=== PATIENT | male | born 1955 | race Caucasian/White ===

== ENCOUNTER → 2018-07-09 | Outpatient (CLI) | payer SELFPAY ==
--- NOTE | 2018-07-09 09:46 | PCVCIMAG ---
APPROVED REPORT Study performed: 07/09/2018 07:40:57 EXAM: Comprehensive 2D, Doppler, and color-flow Echocardiogram Patient Location: Echo lab Status: routine BSA: 1.89 HR: 67 bpmBP: 114/66 mmHg Rhythm: NSR Other Information Study Quality: Adequate Risk Factors: Cardiac Risk Factors: HTN Indications Dyspnea Chest Pain 2D Dimensions IVSd: 9.87 (7-11mm) LVDd: 40.63 mm PWd: 10.69 (7-11mm)Ascending Ao: 27.39 (22-36mm) LVDs: 25.59 (25-40mm) Left Atrium: 35.86 (27-40mm) Aortic Root: 30.07 mm LV Single Plane 4CH: 46.28 % LV Single Plane 2CH: 56.27 % Biplane EF: 51.0 % Volumes Left Atrial Volume (Systole) Single Plane 4CH: 52.40 mLSingle Plane 2CH: 38.62 mL LA ESV Index: 24.00 mL/m2 Aortic Valve AoV Peak Devin.: 1.34 m/s AO Peak Gr.: 7.18 mmHgLVOT Max P.22 mmHg LVOT Max V: 0.84 m/s Mitral Valve E/A Ratio: 1.4 MV Decel. Time: 204.02 ms MV E Max Devin.: 0.53 m/s MV A Devin.: 0.38 m/s IVRT: 79.58 ms Pulmonary Valve PV Peak Devin.: 1.19 m/sPV Peak Gr.: 5.62 mmHg Pulmonary Vein P Vein S: 0.30 m/sP Vein A: 0.33 m/s P Vein D: 0.40 m/sP Vein A Dur.: 128.0 msec P Vein S/D Ratio: 0.75 Tricuspid Valve TR Peak Devin.: 2.39 m/s TR Peak Gr.: 22.94 mmHg TV Vmax: 0.52 m/s Left Ventricle The left ventricle is normal size. There is normal LV segmental wall motion. There is normal left ventricular wall thickness. The left ventricular systolic function is normal. The left ventricular ejection fraction is within the lower limits of normal range. LVEF is 50%. Grade II - pseudonormal filling dynamics. Right Ventricle The right ventricle is normal size. The right ventricular systolic function is normal. Atria The left atrium size is normal. The right atrium size is normal. Aortic Valve The aortic valve is normal in structure. No aortic regurgitation is present. There is no aortic valvular stenosis. Mitral Valve The mitral valve is normal in structure. Trace mitral regurgitation. No evidence of mitral valve stenosis. Tricuspid Valve The tricuspid valve is normal in structure. Trace tricuspid regurgitation with PAP of 30 mmHg. Pulmonic Valve The pulmonary valve is normal in structure. There is no pulmonic valvular regurgitation. Great Vessels The aortic root is normal in size. IVC is normal in size and collapses >50% with inspiration. Pericardium There is no pericardial effusion. There is no pleural effusion. <Conclusion> The left ventricle is normal size. LVEF is 50%. The aortic valve is normal in structure. The mitral valve is normal in structure. Trace mitral regurgitation. The tricuspid valve is normal in structure. Trace tricuspid regurgitation with PAP of 30 mmHg. The pulmonary valve is normal in structure. There is no pericardial effusion.
--- NOTE | 2018-07-15 16:51 | PCVCIMAG ---
APPROVED REPORT Imaging Protocol: Rest Tc-99m/Stress Tc-99m 1 day Study performed: 07/09/2018 09:33:18 Indication: Chest pain, Dyspnea, Orthopnea Patient Location: Out-Patient Stress Nurse: Lor Moran RN, Nadia Clark RN MT Tech:Laura LEONIE BarnardMT Ht: 5 ft 6 in Wt: 175 lbs BSA: 1.89 m2 HR: 81 bpm BP: 117/71 mmHg BMI: 28.24 Rhythm: Sinus Rhythm, T wave abnormality Medical History Medical History: Hyperlipidemia, HTN Allergies: Morphine, Sulfa, Nuts Cardiac Risk Factors: Age, FHX of CAD Pretest Chest Pain Characteristics: No chest pain Exercise History: Sedentary Resting Data Rest SPECT myocardial perfusion imaging was performed in supine position 45 minutes following the intravenous injection of 10.8 mCi of Tc-99m Sestamibi. Time of rest injection: 0845 Date: 07/09/2018 Administration Route: IV Administration Site: Right Arm Pharmacologic Stress Pharmacologic stress test was performed by injecting Regadenoson 0.4 mg IV push over 10-15 seconds immediately followed by the intravenous injection of 34.7 mCi of Tc-99m Sestamibi. Time of stress injection: 1000 Date: 07/09/2018 Administration Route: IV Administration Site: Right Arm Gated Stress SPECT was performed 45 minutes after stress injection. The images were gated to evaluate regional wall motion and calculate left ventricular ejection fraction. Stress Test Details Stress Test: Pharmacologic stress was paired with low level exercise. Reason for pharmacologic stress test: physical limitation. HRMax Heart Rate (APMHR): 156 bpm Resting HR: 81 bpmTarget HR (85% APMHR): 132 bpm Max HR Achieved: 130 bpm % of APMHR: 83 Recovery HR: 81 bpm BP Resting BP: 117/71 mmHg Max BP: 120/70 mmHg Recovery BP: 125/65 mmHg ECG Resting ECG: Sinus Rhythm, T wave abnormality Stress ECG: Sinus Tachycardia, T wave abnormality Recovery ECG: Sinus Rhythm, T wave abnormality Clinical Reason for Termination: Completed protocol Stress Symptoms: Chest pain, Dyspnea, Leg Fatigue, Lightheaded Exercise duration: 4 min 00 sec Exercise capacity: 1.6 METs Symptoms resolved with caffeine. Stress ECG Conclusion 1. Adequate response to intravenous Lexiscan 2. Inadequate heart rate for ECG diagnosis Perfusion There is a large area of moderately reduced uptake in the entire segment of the inferior wall which is seen on the stress images as well as the resting images. This area thickens and moves normally and is most consistent with attenuation artifact. Wall Motion Normal left ventricular wall motion. Nuclear Conclusion ECG Findings: non-diagnostic Clinical Findings: negative for ischemia Nuclear Findings: negative for ischemia Exercise Capacity: not assessed Left Ventricular Function: normal 1. Low risk study 2. Post exercise left ventricular ejection fraction of 73% without wall motion abnormalities <Conclusion> 1. Adequate response to intravenous Lexiscan 2. Inadequate heart rate for ECG diagnosis
== END | disposition home or self-care (01) ==
LOC: PCVCIMAG 08:12
PROVIDERS: ATTEND Internal Medicine
DX: R07.9 Chest pain, unspecified (principal); R06.02 Shortness of breath
CPT/HCPCS: 78452; 93017; 93306; A9500